=== PATIENT | female | born 1950 | race Caucasian/White ===

== ENCOUNTER → 2021-09-15 | Day surgery (SDC) | payer MEDICARE, OTHER ==
[~2021-09-15] VITALS: Ht 162.6 cm; Wt 140.6 kg
[~2021-09-15] MED LIST: AMLODIPINE BESYL5 MG PO; ATORVASTATIN CA80 MG PO; BENZONATATE200 MG PO; CARISOPRODOL 3350 MG PO; CETIRIZINE HCL10 MG PO; CLONIDINE HCL0.2 MG PO; ELAVIL25 MG PO; EMGALITY120 MG/1 M IM; LEVEMIR FL100 UNIT/1 SC; LISINOPRIL10 MG PO; MONTELUKAST SOD10 MG PO; NEURONTIN300 MG PO; NOVOLOG FL100 UNIT/1 SC; NURTEC ODT75 MG PO; PANTOPRAZOLE SO40 MG PO; SOTALOL80 MG PO; TOPIRAMATE100 MG PO
[2021-09-15 13:54] LABS: HCT 44.2 % (37.0-47.0); HGB 13.1 g/dl (12.5-16.0); MCH 29.4 pg (25.0-31.0); MCHC 29.6 g/dL (32.0-36.0); MCV 99.1 fL (78.0-100.0); MPV 10.5 fL (6.0-9.5); RBC 4.46 M/uL (4.20-5.40); RDW 15.1 % (11.5-14.0); WBC 12.2 K/uL (4.0-10.5)
[2021-09-15 14:04] LABS: BUN/CREAT RATIO (CALC) 14.3 RATIO; CREATININE 0.91 mg/dL (0.51-0.95); POTASSIUM 4.5 mmol/L (3.5-5.1)
== END | disposition home or self-care (01) ==
LOC: FAS 12:28
PROVIDERS: Anesthesiology
DX: G56.01 Carpal tunnel syndrome, right upper limb (principal); M65.331 Trigger finger, right middle finger; I10 Essential (primary) hypertension; E11.9 Type 2 diabetes mellitus without complications; E78.00 Pure hypercholesterolemia, unspecified; Z79.4 Long term (current) use of insulin; Z79.899 Other long term (current) drug therapy
CPT/HCPCS: 36415; 80048; 93005; J0690; J1885; J2001; J2250; J2405; J2704; J2795; J3010; J7120